=== PATIENT | male | born 1980 | race Caucasian/White ===

== ENCOUNTER 2018-04-01 16:32 | Inpatient (IN) | payer MEDICAID, SELFPAY ==
--- NOTE | 2018-04-01 16:59 | PCM.HP.STD ---
<Stanford Skinner - Last Filed: 04/01/18 16:59> Problem List (1) Opiate withdrawal Status: Acute (2) Asthma Status: Chronic (3) Anxiety and depression Status: Chronic History of Present Illness Date of Admission: 04/01/18 Chief Complaint: heroin withdrawal The patient is a 37 year old M with past medical history of heroin abuse, marijuana abuse, asthma, depression, who presents to the hospital for direct admit through the medical stabilization program for acute heroin withdrawal. Patient has been using heroin for a total of approximately 6 years. Last time he was sober was last April, he completed medical stabilization program at this hospital at that time and stayed sober for approximately 3 months. He has been using about 1/2-1 g of heroin intravenously daily and his left arm. His last use was 1/4 g at about 9 PM last night. His current withdrawal symptoms include anxiety, abdominal pain, nausea and vomiting. His is also a heroin addict who was discharged from the medical stabilization program here today, they are planning on pursuing the [employer] through the [facility] program in [place]. He also sometimes uses marijuana, denies any other drug use. He does not drink, he does not use tobacco products. [] Past Medical History Past Medical History (Chronic Problems): Chronic Problems Asthma (Chronic) Anxiety and depression (Chronic) Heroin abuse (Chronic) Allergies Penicillins [PCN] Allergy (Unknown, Verified 05/08/17 13:32) Unknown had allergy since he was a child Home Medications: Ambulatory Orders Medication Instructions Recorded Albuterol Inhaler [Ventolin Hfa] 2 puff INHALATION Q4H PRN PRN 05/08/17 Surgical History: appendectomy, - - Appendectomy, tonsillectomy. Psychiatric History: Anxiety, Depression Lives: Spouse/ Significant Other Smoking Status: Never smoker Tobacco Use: Non-smoker Alcohol: None Drugs: None - *Family History Maternal History Items: No pertinent history Paternal History Items: No pertinent history Review of Systems Constitutional: Denies: Chills, Fever, Weight Change HEENT: Denies: Head Aches, Sinus Congestion, Sinus Drainage Cardiovascular: Denies: Chest Pain, Palpitations Respiratory: Denies: Cough, Shortness of breath at rest, Sputum production Gastrointestinal: Reports: Abdominal Pain, Nausea, Vomiting Genitourinary: Denies: Dysuria Musculoskeletal: Denies: Joint Pain, Joint Tenderness Skin: Denies: Rash, Wounds Neurological: Denies: Numbness, Tingling, Focal weakness Psychiatric: Reports: Anxiety, Depression. Denies: Homicidal Ideations, Suicidal Ideations Hematologic/ Lymphatic: Denies: Easy Bruising, Easy Bleeding VTE Information - Inpt Only VTE Present on Admission: No VTE Mechan Device Prophylaxis: None VTE Pharm Prophylaxis ordered?: No Reason prophylaxis not ordered:: Procedure Not Indicated Patient Problems: Active and Suspected Problems Opiate withdrawal (Acute) - Physical Exam General: Alert, Oriented x3, Cooperative HEENT: Atraumatic, PERRLA, EOMI, Normocephalic Neck: Supple, No JVD, Negative Carotid Bruits Lungs: Clear to auscultation, Normal air movement Cardiovascular: Regular rate, No murmurs Abdomen: Bowel Sounds Present, Soft, Non Tender Extremities: No edema, Capillary Refill Less than 3 Seconds, - - Left arm with track aviles, no erythema, discharge, warmth, swelling. Skin: No rashes, No breakdown Musculoskeletal: No Tenderness to Palpation of Joints or Extremities Neurological: Cranial nerves II-XII grossly intact Psych/Mental Status: Normal Affect, Appropriate Assessment/Plan All Active Problems Opiate withdrawal (Acute) 1. Acute opiate withdrawal -intravenous heroin. Last use last night at 9 PM, 1/4 g. Uses 1-2 g per day. Current withdrawal symptoms include anxiety, abdominal pain, nausea, vomiting. Initiate medical stabilization protocol. 2. Polysubstance abuse-also uses marijuana. Denies other drug use, nicotine abuse, alcohol use. 3. History of asthma-as needed albuterol. Currently no respiratory complaints. 4. History of anxiety depression-not on home meds. Discharge plan: Plans to pursue [facility] and Vivitrol at discharge. Medical stabilization: day 1 of 4 This patient was seen by Stanford Skinner PA-C under the supervision of Doctor Ulloa. <Cornelius Ulloa - Last Filed: 04/01/18 17:58> History of Present Illness The patient is a 37 year old M [] Past Medical History Allergies Penicillins [PCN] Allergy (Unknown, Verified 05/08/17 13:32) Unknown had allergy since he was a child - Physical Exam Vital Signs Temp Pulse Resp BP 98.2 F 107 H 16 144/73 H 04/01/18 17:23 04/01/18 17:23 04/01/18 17:23 04/01/18 17:23 Weight: 155 lb 13.869 oz Body Mass Index (BMI) 24.4 Assessment/Plan Hospitalist note: I am seeing this patient in conjunction with Stanford Skinner. I independently seen and examined the patient. History and physical reviewed and I agree with above admission and treatment plan. Patient came to the [facility] service office requesting admission for acute opioid withdrawal for medical stabilization. He has been using IV heroin for the last 6 years, last dose was last night. His main presenting symptoms of anxiety, restlessness, abdominal cramps with nausea and vomiting. He is slightly tachycardic, other vital signs are stable - Physical Exam General: Alert, Oriented x3, Cooperative, No apparent distress. HEENT: Atraumatic, PERRLA, EOMI. Neck: Supple, No JVD, Negative Carotid Bruits, Trachea Midline, Thyroid Normal. Lungs: Clear to auscultation, Normal air movement, No rhonchi, No wheeze, No rales. Cardiovascular: Regular rate, Regular Rhythm, Normal S1, Normal S2, PMI Normal. Abdomen: Bowel Sounds Present, Soft, Non Tender, Non-Distended, No Hepato-splenomegaly. Extremities: No clubbing, No cyanosis, No edema Skin: No rashes, No breakdown Neurological: Neuro grossly intact Assessment and plan: #1 acute opioid withdrawal: Admit to [facility], start [facility] protocol with tapering course of Subutex, as needed Tylenol, Catapres, Bentyl, Vistaril, methocarbamol, Zofran, Mirapex and Seroquel, check serum alcohol level, urine drug screen. #2 other chronic medical problems: Plan as above. This note was generated with [employer] dictation software. It may contain incorrect words, spelling, and punctuation that were not noted in checking the note before signing. Code Visit Inpatient E&M: 64635 Init Hosp L2
[2018-04-01 17:00] VITALS: BMI 24.4
[2018-04-01 17:06] VITALS: BMI 24.4
--- NOTE | 2018-04-01 17:07 | HP.PCM_ITS ---
<Stanford Skinner - Last Filed: 04/01/18 16:59> Problem List (1) Opiate withdrawal Status: Acute (2) Asthma Status: Chronic (3) Anxiety and depression Status: Chronic History of Present Illness Date of Admission: 04/01/18 Chief Complaint: heroin withdrawal The patient is a 37 year old M with past medical history of heroin abuse, marijuana abuse, asthma, depression, who presents to the hospital for direct admit through the medical stabilization program for acute heroin withdrawal. Patient has been using heroin for a total of approximately 6 years. Last time he was sober was last April, he completed medical stabilization program at this hospital at that time and stayed sober for approximately 3 months. He has been using about 1/2-1 g of heroin intravenously daily and his left arm. His last use was 1/4 g at about 9 PM last night. His current withdrawal symptoms include anxiety, abdominal pain, nausea and vomiting. His is also a heroin addict who was discharged from the medical stabilization program here today, they are planning on pursuing the [employer] through the [facility] program in [place]. He also sometimes uses marijuana, denies any other drug use. He does not drink, he does not use tobacco products. [] Past Medical History Past Medical History (Chronic Problems): Chronic Problems Asthma (Chronic) Anxiety and depression (Chronic) Heroin abuse (Chronic) Allergies Penicillins [PCN] Allergy (Unknown, Verified 05/08/17 13:32) Unknown had allergy since he was a child Home Medications: Ambulatory Orders Medication Instructions Recorded Albuterol Inhaler [Ventolin Hfa] 2 puff INHALATION Q4H PRN PRN 05/08/17 Surgical History: appendectomy, - - Appendectomy, tonsillectomy. Psychiatric History: Anxiety, Depression Lives: Spouse/ Significant Other Smoking Status: Never smoker Tobacco Use: Non-smoker Alcohol: None Drugs: None - *Family History Maternal History Items: No pertinent history Paternal History Items: No pertinent history Review of Systems Constitutional: Denies: Chills, Fever, Weight Change HEENT: Denies: Head Aches, Sinus Congestion, Sinus Drainage Cardiovascular: Denies: Chest Pain, Palpitations Respiratory: Denies: Cough, Shortness of breath at rest, Sputum production Gastrointestinal: Reports: Abdominal Pain, Nausea, Vomiting Genitourinary: Denies: Dysuria Musculoskeletal: Denies: Joint Pain, Joint Tenderness Skin: Denies: Rash, Wounds Neurological: Denies: Numbness, Tingling, Focal weakness Psychiatric: Reports: Anxiety, Depression. Denies: Homicidal Ideations, Suicidal Ideations Hematologic/ Lymphatic: Denies: Easy Bruising, Easy Bleeding VTE Information - Inpt Only VTE Present on Admission: No VTE Mechan Device Prophylaxis: None VTE Pharm Prophylaxis ordered?: No Reason prophylaxis not ordered:: Procedure Not Indicated Patient Problems: Active and Suspected Problems Opiate withdrawal (Acute) - Physical Exam General: Alert, Oriented x3, Cooperative HEENT: Atraumatic, PERRLA, EOMI, Normocephalic Neck: Supple, No JVD, Negative Carotid Bruits Lungs: Clear to auscultation, Normal air movement Cardiovascular: Regular rate, No murmurs Abdomen: Bowel Sounds Present, Soft, Non Tender Extremities: No edema, Capillary Refill Less than 3 Seconds, - - Left arm with track aviles, no erythema, discharge, warmth, swelling. Skin: No rashes, No breakdown Musculoskeletal: No Tenderness to Palpation of Joints or Extremities Neurological: Cranial nerves II-XII grossly intact Psych/Mental Status: Normal Affect, Appropriate Assessment/Plan All Active Problems Opiate withdrawal (Acute) 1. Acute opiate withdrawal -intravenous heroin. Last use last night at 9 PM, 1/ 4 g. Uses 1-2 g per day. Current withdrawal symptoms include anxiety, abdominal pain, nausea, vomiting. Initiate medical stabilization protocol. 2. Polysubstance abuse-also uses marijuana. Denies other drug use, nicotine abuse, alcohol use. 3. History of asthma-as needed albuterol. Currently no respiratory complaints. 4. History of anxiety depression-not on home meds. Discharge plan: Plans to pursue [facility] and Vivitrol at discharge. Medical stabilization: day 1 of 4 This patient was seen by Stanford Skinner PA-C under the supervision of Doctor Ulloa. <Cornelius Ulloa - Last Filed: 04/01/18 17:58> History of Present Illness The patient is a 37 year old M [] Past Medical History Allergies Penicillins [PCN] Allergy (Unknown, Verified 05/08/17 13:32) Unknown had allergy since he was a child - Physical Exam Vital Signs Temp Pulse Resp BP 98.2 F 107 H 16 144/73 H 04/01/18 17:23 04/01/18 17:23 04/01/18 17:23 04/01/18 17:23 Weight: 155 lb 13.869 oz Body Mass Index (BMI) 24.4 Assessment/Plan Hospitalist note: I am seeing this patient in conjunction with Stanford Skinner. I independently seen and examined the patient. History and physical reviewed and I agree with above admission and treatment plan. Patient came to the [facility] service office requesting admission for acute opioid withdrawal for medical stabilization. He has been using IV heroin for the last 6 years, last dose was last night. His main presenting symptoms of anxiety, restlessness, abdominal cramps with nausea and vomiting. He is slightly tachycardic, other vital signs are stable - Physical Exam General: Alert, Oriented x3, Cooperative, No apparent distress. HEENT: Atraumatic, PERRLA, EOMI. Neck: Supple, No JVD, Negative Carotid Bruits, Trachea Midline, Thyroid Normal. Lungs: Clear to auscultation, Normal air movement, No rhonchi, No wheeze, No rales. Cardiovascular: Regular rate, Regular Rhythm, Normal S1, Normal S2, PMI Normal. Abdomen: Bowel Sounds Present, Soft, Non Tender, Non-Distended, No Hepato- splenomegaly. Extremities: No clubbing, No cyanosis, No edema Skin: No rashes, No breakdown Neurological: Neuro grossly intact Assessment and plan: #1 acute opioid withdrawal: Admit to [facility], start [facility] protocol with tapering course of Subutex, as needed Tylenol, Catapres, Bentyl, Vistaril, methocarbamol, Zofran, Mirapex and Seroquel, check serum alcohol level, urine drug screen. #2 other chronic medical problems: Plan as above. This note was generated with [employer] dictation software. It may contain incorrect words, spelling, and punctuation that were not noted in checking the note before signing. Code Visit Inpatient E&M: 52902 Init Hosp L2
[2018-04-01 17:23] VITALS: BP 144/73; PULSE 107; RESP 16; TEMP 36.8
[2018-04-01] MEDS: Dicyclomine 10 MG Capsule 20 MG PO (17:32)
[2018-04-01] MEDS: Buprenorphine HCl 2 MG TAB.SUBL SL (17:32)
[2018-04-01 21:15] VITALS: BP 127/82; PULSE 102; RESP 16; TEMP 36.8; O2SAT 100
[2018-04-01] MEDS: cloNIDine HCl 0.1 MG Tablet PO (21:36)
[2018-04-01] MEDS: Ondansetron ODT 4 MG Tablet PO (21:36)
[2018-04-02 00:50] LABS: Amphetamine Urine VISTA POSITIVE (<1000 ng/mL); Barbiturate Urine VISTA NEGATIVE (< 200 ng/mL); Benzodiazepine Urine VISTA NEGATIVE (< 200 ng/mL); Cocaine Urine VISTA POSITIVE (< 300 ng/mL); Ecstacy Urine VISTA NEGATIVE (< 500 ng/mL); Methadone Urine VISTA NEGATIVE (< 300 ng/mL); PCP Urine VISTA NEGATIVE (< 25 ng/mL); THC Urine VISTA POSITIVE (< 50 ng/mL); Vista UDS pH Range 6
[2018-04-02 01:40] VITALS: BP 126/69; PULSE 65; RESP 14; TEMP 36.7
[2018-04-02] MEDS: Buprenorphine HCl 2 MG TAB.SUBL SL ×3 (01:42→16:39)
[2018-04-02 05:38] VITALS: BP 107/69; PULSE 66; RESP 16; TEMP 36.6
[2018-04-02] MEDS: QUEtiapine 25 MG Tablet PO ×2 (05:41→15:12)
[2018-04-02] MEDS: cloNIDine HCl 0.1 MG Tablet PO (05:41)
[2018-04-02 09:11] VITALS: BP 110/72; PULSE 86; RESP 16; TEMP 36.7
--- NOTE | 2018-04-02 09:12 | PN_ITS ---
Patient Problems: Active and Suspected Problems Opiate withdrawal (Acute) Subjective: The patient is having cold sweats/diaphoresis. Denies hallucination, tremors having gooseflesh. No diarrhea but generalized tiredness and weakness. Vitals/I&O's: Vital Signs Temp Pulse Resp BP Pulse Ox 97.8 F 66 16 107/69 100 04/02/18 05:38 04/02/18 05:38 04/02/18 05:38 04/02/18 05:38 04/01/18 21:15 Oxygen Delivery Method Room Air Weight: 155 lb 13.869 oz Body Mass Index (BMI) 24.4 Intake and Output for Last 24 Hours 03/31/18 04/01/18 04/02/18 23:59 23:59 23:59 Intake Total 420 / 420 Balance 420 / 420 General: Alert, Oriented x3, Cooperative HEENT: Atraumatic, PERRLA, EOMI, Normocephalic Neck: Supple, No JVD, Negative Carotid Bruits Lungs: Clear to auscultation, Normal air movement Cardiovascular: Regular rate, No murmurs Abdomen: Bowel Sounds Present, Soft, Non Tender Extremities: No edema, Capillary Refill Less than 3 Seconds Skin: No rashes, No breakdown, - - In bilateral antecubital region Musculoskeletal: No Tenderness to Palpation of Joints or Extremities Neurological: Cranial nerves II-XII grossly intact Psych/Mental Status: Normal Affect, Appropriate Laboratory Results 04/01/18 18:20: Ethyl Alcohol Cancelled 04/01/18 21:46: Ethyl Alcohol 11.0 04/01/18 23:20: Urine Opiates Screen POSITIVE H, Urine Methadone Screen NEGATIVE , Ur Barbiturates Screen NEGATIVE, Ur Phencyclidine Scrn NEGATIVE, Ur Amphetamines Screen POSITIVE H, U Methamphetamin-MDMA NEGATIVE, U Benzodiazepines Scrn NEGATIVE, Urine Cocaine Screen POSITIVE H, U Cannabinoids Screen POSITIVE H, Ur Drug Screen Comment Current Medications Acetaminophen (Tylenol) 500 mg PO Q4H PRN PRN PRN Reason: Temp > 100.4 F Albuterol Sulfate (Ventolin Aerosols) 2.5 mg INHALATION Q4H PRN PRN PRN Reason: SOB &/OR WHEEZING Buprenorphine HCl (Buprenorphine Hcl) 4 mg SL Q8H RITESH PRN Reason: Taper Stop: 04/04/18 20:59 Last Admin: 04/02/18 01:42 Dose: 4 mg Clonidine (Catapres) 0.1 mg PO Q2H PRN PRN PRN Reason: Hot/Cold Sweats or Anxiety Last Admin: 04/02/18 05:41 Dose: 0.1 mg Dicyclomine HCl (Bentyl) 20 mg PO Q6H PRN PRN PRN Reason: Abdomnial Discomfort Last Admin: 04/01/18 17:32 Dose: 20 mg Hydroxyzine Pamoate (Vistaril Pamoate Capsule) 50 mg PO Q6H PRN PRN PRN Reason: Mild Anxiety (score 1/3) Methocarbamol (Methocarbamol) 750 mg PO Q6H PRN PRN PRN Reason: Muscle Aches Ondansetron HCl (Zofran Odt) 4 mg PO Q6H PRN PRN PRN Reason: NAUSEA Last Admin: 04/01/18 21:36 Dose: 4 mg Pramipexole Dihydrochloride (Mirapex) 0.25 mg PO Q12H PRN PRN Reason: RESTLESS LEGS Quetiapine Fumarate (Seroquel) 25 mg PO Q6H PRN PRN PRN Reason: Moderate Anxiety (score 2/3) Last Admin: 04/02/18 05:41 Dose: 25 mg Medical Necessity - Tobacco Use Smoking Status: Never smoker Tobacco Use: Non-smoker Assessment/Plan All Active Problems Opiate withdrawal (Acute) This is a 37-year-old gentleman who came to the [facility] service office requesting admission for acute opioid withdrawal for medical stabilization. He has been using IV heroin for the last 6 years, last dose was last night. His main presenting symptoms of anxiety, restlessness, abdominal cramps with nausea and vomiting. 1. Acute opiate withdrawal -intravenous heroin. Last use, 1 day prior to admission at 9 PM, 1/4 g. Uses 1-2 g per day. medical stabilization protocol. 2. Polysubstance abuse-also uses marijuana. Denies other drug use, nicotine abuse, alcohol use. 3. History of asthma-as needed albuterol. Currently no respiratory complaints. 4. History of anxiety depression-not on home meds. DVT prophylaxis: Low risk does not require prophylaxis. Early ambulation encouraged Code Visit Inpatient E&M: 10803 Subs Hosp L2
[2018-04-02 11:48] VITALS: BP 91/54; PULSE 88; RESP 16; TEMP 37
[2018-04-02 16:34] VITALS: BP 110/56; PULSE 96; RESP 18; TEMP 36.3
[2018-04-02 19:35] VITALS: BP 108/66; PULSE 98; RESP 18; TEMP 36.9
[2018-04-03 01:18] VITALS: BP 86/54; PULSE 78; RESP 16; TEMP 36.6
[2018-04-03] MEDS: Buprenorphine HCl 2 MG TAB.SUBL SL ×3 (01:23→22:38)
[2018-04-03 08:57] VITALS: BP 114/59; PULSE 92; RESP 16; TEMP 37.5
[2018-04-03] MEDS: QUEtiapine 25 MG Tablet PO ×2 (09:05→22:38)
[2018-04-03] MEDS: Dicyclomine 10 MG Capsule 20 MG PO ×3 (09:05→23:57)
--- NOTE | 2018-04-03 09:23 | PCM.PN.HOSP ---
Patient Problems: Active and Suspected Problems Opiate withdrawal (Acute) Subjective: Patient withdrawal symptoms are much better. Patient wanted to be tested for hepatitis C, HIV. Urine is also dark but denies lower urinary tract symptoms Vitals/I&O's: Vital Signs Temp Pulse Resp BP Pulse Ox 99.5 F H 92 16 114/59 L 100 04/03/18 08:57 04/03/18 08:57 04/03/18 08:57 04/03/18 08:57 04/01/18 21:15 Oxygen Delivery Method Room Air Weight: 155 lb 13.869 oz Body Mass Index (BMI) 24.4 Intake and Output for Last 24 Hours 04/01/18 04/02/18 04/03/18 23:59 23:59 23:59 Intake Total 1020 / 1020 340 / 340 Balance 1020 / 1020 340 / 340 General: Alert, Oriented x3, Cooperative HEENT: Atraumatic, PERRLA, EOMI, Normocephalic Neck: Supple, No JVD, Negative Carotid Bruits Lungs: Clear to auscultation, Normal air movement Cardiovascular: Regular rate, No murmurs Abdomen: Bowel Sounds Present, Soft, Non Tender Extremities: No edema, Capillary Refill Less than 3 Seconds Skin: No rashes, No breakdown Musculoskeletal: No Tenderness to Palpation of Joints or Extremities Neurological: Cranial nerves II-XII grossly intact Psych/Mental Status: Normal Affect, Appropriate Current Medications Acetaminophen (Tylenol) 500 mg PO Q4H PRN PRN PRN Reason: Temp > 100.4 F Albuterol Sulfate (Ventolin Aerosols) 2.5 mg INHALATION Q4H PRN PRN PRN Reason: SOB &/OR WHEEZING Buprenorphine HCl (Buprenorphine Hcl) 2 mg SL Q12H RITESH PRN Reason: Taper Stop: 04/04/18 20:59 Last Admin: 04/03/18 09:05 Dose: 2 mg Clonidine (Catapres) 0.1 mg PO Q2H PRN PRN PRN Reason: Hot/Cold Sweats or Anxiety Last Admin: 04/02/18 05:41 Dose: 0.1 mg Dicyclomine HCl (Bentyl) 20 mg PO Q6H PRN PRN PRN Reason: Abdomnial Discomfort Last Admin: 04/03/18 09:05 Dose: 20 mg Hydroxyzine Pamoate (Vistaril Pamoate Capsule) 50 mg PO Q6H PRN PRN PRN Reason: Mild Anxiety (score 1/3) Methocarbamol (Methocarbamol) 750 mg PO Q6H PRN PRN PRN Reason: Muscle Aches Ondansetron HCl (Zofran Odt) 4 mg PO Q6H PRN PRN PRN Reason: NAUSEA Last Admin: 04/01/18 21:36 Dose: 4 mg Pramipexole Dihydrochloride (Mirapex) 0.25 mg PO Q12H PRN PRN Reason: RESTLESS LEGS Quetiapine Fumarate (Seroquel) 25 mg PO Q6H PRN PRN PRN Reason: Moderate Anxiety (score 2/3) Last Admin: 04/03/18 09:05 Dose: 25 mg Medical Necessity - Tobacco Use Smoking Status: Never smoker Tobacco Use: Non-smoker Assessment/Plan All Active Problems Opiate withdrawal (Acute) This is a 37-year-old gentleman who came to the [facility] service office requesting admission for acute opioid withdrawal for medical stabilization. He has been using IV heroin for the last 6 years, last dose was last night. His main presenting symptoms of anxiety, restlessness, abdominal cramps with nausea and vomiting. 1. Acute opiate withdrawal -intravenous heroin. Last use, 1 day prior to admission at 9 PM, 1/4 g. Uses 1-2 g per day. medical stabilization protocol. Labs for viral hepatitis panel, HIV and UA ordered. CBC and CMP ordered. 2. Polysubstance abuse-also uses marijuana. Denies other drug use, nicotine abuse, alcohol use. 3. History of asthma-as needed albuterol. Currently no respiratory complaints. 4. History of anxiety depression-not on home meds. DVT prophylaxis: Low risk does not require prophylaxis. Early ambulation encouraged Code Visit Inpatient E&M: 71609 Subs Hosp L2
[2018-04-03 13:22] VITALS: BP 114/65; PULSE 91; RESP 18; TEMP 37
[2018-04-03 13:25] LABS: Absolute Lymphocyte Count 1.54 X10^3/ul (0.83-4.51); Absolute Neutrophil Count 3.3 X10^3/uL (2.0-7.7); Basophil# 0.05 X10^3/uL; Basophil% 0.9 % (0-1); Eosinophil# 0.17 X10^3/uL; Hematocrit 41.3 % (40-54); Hemoglobin 13.8 g/dl (13.0-16.5); Lymphocyte # 1.54 X10^3/ul (4.0); Lymphocyte % 27.2 % (19-41); Mean Corp Hgb Conc 33.4 g/gl (32-36); Mean Corpuscular Volume 77.8 fL (80-94); Mean Platelet Vol. 12.2 fl (6.2-12.0); Monocyte# 0.58 X10^3/uL; Monocyte% 10.2 % (0-10); Neutrophil # 3.32 X10^3/uL (2.7-7.7); Neutrophil % 58.5 % (47-70); Platelet Count 243 K/mm3 (150-450); RBC Distribution Width CV 18.5 % (11.6-14.6); RBC Distribution Width SD 51.7 fl (35.1-43.9); Red Blood Count 5.31 M/mm3 (4.6-6.2); White Blood Count 5.7 K/mm3 (4.4-11.0)
[2018-04-03 13:28] LABS: POSITIVE COUNT NO; POSITIVE DIFFERENTIAL NO; POSITIVE MORPHOLOGY NO
[2018-04-03 13:58] LABS: International Normalized Ratio 1.2; Prothrombin Time (Protime)PT. 14.7 SECONDS (11.7-14.9)
[2018-04-03 14:32] LABS: ALB/GLOB Ratio 0.9 RATIO (0.9-2.4); AST(SGOT) 778 U/L (15-37); Alanine Aminotransfer ALT/SGPT 1356 U/L (16-61); Albumin, Serum 3.4 g/dL (3.2-5.0); Alkaline Phosphatase 336 U/L (45-117); Anion Gap 6 (5-15); BUN 11 mg/dL (7-18); BUN/Creat Ratio 15.8 RATIO (10-20); Calcium,Total 8.9 mg/dL (8.5-10.1); Chloride 102 mmol/L (98-107); EST Glomerular Filtration Rate 135 mL/min (>60); Est Glom Filt Rate - Afr Amer 164 mL/min (>60); Estimated Creatinine Clearance 135.09 ml/min; Globulin 3.9 g/dL (2.2-4.2); Glucose 116 mg/dL (74-106); Potassium 3.8 mmol/L (3.5-5.1); Protein, Total 7.3 g/dL (6.4-8.2); Sodium Level 136 mmol/L (136-145)
[2018-04-03 15:20] LABS: Glucose, Dipstick Normal (Normal); Ketone-Dipstick 50 mg/dl (Negative); Leukocyte Esterase-Dipstick Negative /ul (Negative); Nitrite-Dipstick Negative (Negative); Occult Blood-Urine 10 /ul (Negative); Protein-Dipstick 30 mg/dl (Negative); Urine Clarity Clear (Clear); Urine Urobilinogen 12 mg/dl (Normal)
[2018-04-03 15:25] LABS: Color, Urine SEE COMMENT BELOW (Yellow); Urine Bilirubin Dipstick 6 mg/dL (Negative)
[2018-04-03 16:14] LABS: White Blood Cells 5-10 SEEN /hpf (0-5)
[2018-04-03 16:15] LABS: Bacteria 2+ /hpf (None Seen); Mucous, Urine 2+ /hpf (<or=2+); Red Blood Cells-Urine 0-5 SEEN /hpf (0-5); Squamous Epithelial Cells - UA 0-5 SEEN /hpf (0-5)
[2018-04-03 17:33] VITALS: BP 112/68; PULSE 81; RESP 18; TEMP 37.5
[2018-04-03 22:38] VITALS: BP 116/66; PULSE 73; RESP 16; TEMP 36.1
[2018-04-03] MEDS: cloNIDine HCl 0.1 MG Tablet PO (22:38)
[2018-04-04 06:47] VITALS: BP 92/46; PULSE 54; RESP 16; TEMP 36.7
[2018-04-04 08:21] VITALS: BP 102/56; PULSE 81; RESP 18; TEMP 36.4
[2018-04-04 09:19] LABS: HIV - WCH Non-Reactive (Nonreactive)
[2018-04-04] MEDS: Buprenorphine HCl 2 MG TAB.SUBL SL (09:36)
[2018-04-04 10:13] LABS: AST(SGOT) 1003 U/L (15-37); Alanine Aminotransfer ALT/SGPT 1613 U/L (16-61); Albumin, Serum 3.3 g/dL (3.2-5.0); Alkaline Phosphatase 317 U/L (45-117); Bilirubin, Direct 3.97 mg/dL (0.00-0.30); Protein, Total 7.3 g/dL (6.4-8.2)
--- NOTE | 2018-04-04 10:13 | NURSING ---
pt caught getting on elevator, leaving AMA. pt was stopped by [employer] and was agreeable to sign AMA formed. discussed what physician stated this a.m. still insistent wants to leave. Physician and primary RN informed.
--- NOTE | 2018-04-04 10:25 | NURSING ---
[id number] SAID HIS LIVER IS NOT WELL, AND HE WANTS TO HAVE MORE BLOOD WORK TO SEE IF THE LAB LEVELS WILL TREND DOWN. PT WAS AGAIN ENCOURAGED BY NURSE TO SET GOALS FOR HIMSELF AND SON AND DAUGHTER, FOR THE SAKE OF IMPROVING RELATIONSHIPS AND HIS OWN HEALTH.
[2018-04-04 12:07] LABS: Hepatitis A IgM Antibody Negative (Negative); Hepatitis B Core AB IgM Positive (Negative)
[2018-04-04 13:58] LABS: HEPATITIS B SURFACE AG Positive (Negative); Hep C Antibodies >11.0 s/co ratio (0.0-0.9)
--- NOTE | 2018-04-04 15:43 | DS.PCM_ITS ---
Discharge Date and Diagnosis Date of Admission: 04/01/18 Date of Discharge: 04/04/18 - Primary Discharge Diagnosis 1. Acute opiate withdrawal 2. acute on chronic or chronic Hepatitis, but most probably secondary to polysubstance abuse/DILI and active hepatitis B and chronic hepatitis C Polysubstance use and dependence - Secondary Discharge Diagnosis Chronic Problems Asthma (Chronic) Anxiety and depression (Chronic) Heroin abuse (Chronic) Hospital Course and Treatment Summary of Care Provided: ] This is a 37-year-old gentleman who came to the [facility] service office requesting admission for acute opioid withdrawal for medical stabilization. He has been using IV heroin for the last 6 years, last dose was last night. His main presenting symptoms of anxiety, restlessness, abdominal cramps with nausea and vomiting. The patient was seen and examined today Denies abdominal pain General: Alert, Oriented x3, Cooperative HEENT: Atraumatic, PERRLA, EOMI, Normocephalic Neck: Supple, No JVD, Negative Carotid Bruits Lungs: Clear to auscultation, Normal air movement Cardiovascular: Regular rate, No murmurs Abdomen: Bowel Sounds Present, Soft, Non Tender. Liver enlarged about 3 finger below right costal margin mild splenomegaly Extremities: No edema, Capillary Refill Less than 3 Seconds Skin: No rashes, No breakdown Musculoskeletal: No Tenderness to Palpation of Joints or Extremities Neurological: Cranial nerves II-XII grossly intact Psych/Mental Status: Normal Affect, Appropriate 1. Acute opiate withdrawal -intravenous heroin. Last use, 1 day prior to admission at 9 PM, 1/4 g. Uses 1-2 g per day. medical stabilization protocol. Labs for viral hepatitis panel, HIV and UA ordered. also uses marijuana. Denies other drug use, nicotine abuse, alcohol use. 2. acute on chronic or chronic Hepatitis, but most probably secondary to polysubstance abuse/DILI and active hepatitis B and chronic hepatitis C - patient has increased ALT and AST, ALT 1356, AST 778, alkaline phosphatase 3 and 36, total bili 5.8. LFTs repeated today shows worsening of ALT and AST. Total bilirubin today 5.9, direct 3.97 so mainly indirect hyperbilirubinemia. Right upper quadrant sonogram ordered. Hepatitis B profile shows B surface antigen positive, IgM antibody positive. HIV negative. It is suggestive of active persistent hepatitis B and chronic hepatitis C. 3. History of asthma-as needed albuterol. Currently no respiratory complaints. 4. History of anxiety depression-not on home meds. DVT prophylaxis: Low risk does not require prophylaxis. Early ambulation encouraged Laboratory Results 04/03/18 13:00: Hepatitis A IgM Ab Negative, Hep Bs Antigen Positive H, Hep B Core IgM Ab Positive H, Hepatitis C Ab (EIA) >11.0 H 04/03/18 13:00: Vitamin B12 Cancelled, HIV 1&2 Antibody Non-Reactive 04/03/18 13:52: Urine RBC 0-5 SEEN, Urine WBC 5-10 SEEN, Ur Squamous Epith Cells 0-5 SEEN, Urine Bacteria 2+, Urine Mucus 2+ 04/04/18 09:34: Total Bilirubin 5.90 H, Direct Bilirubin 3.97 H, AST 1003 H, ALT 1613 H, Alkaline Phosphatase 317 H, Total Protein 7.3, Albumin 3.3, Globulin 4.0 The patient was advised to stay to follow further liver trends, right upper quadrant sonogram. In spite of discussion about significantly abnormal LFT which might lived to life-threatening liver failure patient signed AMA. Patient verbalized understanding to the nurse and me. Home Medications: Medications to take at Discharge Albuterol Inhaler [Ventolin Hfa] 2 puff INHALATION Q4H PRN PRN 05/08/17 Primary Care Physician: Care Physician,No Primary [Primary Care Provider] - Medical Necessity - Tobacco Use Smoking Status: Never smoker Tobacco Use: Non-smoker Meaningful Use Info Meaningful Use Diagnoses (Choose all that apply): None applicable Code Visit Inpatient E&M: 79931 Subs Hosp L3
== END 2018-04-04 10:15 | disposition left against medical advice (07) | DRG 433 ==
PROVIDERS: Admitting Provider Hospitalist; Visit Provider Internal Medicine
DX: F11.23 Opioid dependence with withdrawal (principal); B19.10 Unspecified viral hepatitis B without hepatic coma; B18.2 Chronic viral hepatitis C; F12.90 Cannabis use, unspecified, uncomplicated; J45.909 Unspecified asthma, uncomplicated; F41.8 Other specified anxiety disorders
CPT/HCPCS: 36415; 80053; 80074; 80076; 80307; 80320; 81001; 82746; 85025; 85610; 86703; G0480